=== PATIENT | female | born 1995 | race Caucasian/White ===

== ENCOUNTER 2022-04-29 07:23 | Inpatient (IN) | payer OTHER ==
[2022-04-29 07:47] VITALS: BMI 31.6
[2022-04-29 08:57] LABS: Fetal Membranes Rupture No Membranes Rupture (No Rupture)
[2022-04-29] MEDS ORDERED: Carboprost 250 MCG/ML AMP IM PRN (10:18)
[2022-04-29] MEDS ORDERED: Diphenoxylate HCl/Atropine Tablet PO PRN (10:18)
[2022-04-29] MEDS ORDERED: Methylergonovine 0.2 MG/ML VIAL IM PRN (10:18)
[2022-04-29] MEDS ORDERED: Misoprostol 200 MCG TAB PR PRN (10:18)
[2022-04-29] MEDS ORDERED: Ondansetron PF 4 MG/2 ML Vial IVP PRN ×2 (10:18→14:51)
[2022-04-29] MEDS ORDERED: Butorphanol Tartrate 1 MG/ML VIAL SLOW IVP PRN (10:18)
[2022-04-29] MEDS ORDERED: Lidocaine 1% (PF) 30 ML VIAL SC PRN (10:18)
[2022-04-29] MEDS ORDERED: Acetaminophen 500 MG TAB PO PRN (10:18)
[2022-04-29] MEDS ORDERED: hydrALAZINE 20 MG/ML VIAL SLOW IVP PRN (10:18)
[2022-04-29] MEDS ORDERED: Promethazine HCl 25 MG/ML VIAL IM PRN ×2 (10:18→14:51)
[2022-04-29] MEDS ORDERED: NS w/ Oxytocin 30 units 500 ML IV SCH ×2 (10:30)
[2022-04-29] MEDS ORDERED: Lactated Ringer's 1,000 ML IV SCH (10:30)
[2022-04-29 11:33] LABS: Hemoglobin 10.4 g/dL (12.0-15.5); Mean Corpuscular HGB CONC 32.4 g/dL (32.0-36.0); Mean Corpuscular Hemoglobin 23.6 pg (27.0-33.0); Mean Corpuscular Volume 72.8 fl (81.6-98.3); Mean Platelet Volume 9.6 fl (7.4-10.4); Platelet Count 288 10x3/uL (150-450); Red Blood Cell (RBC) Count 4.41 10x6/uL (3.90-5.03); White Blood Cell (WBC) Count 11.1 10x3/uL (3.5-10.5)
[2022-04-29 12:05] LABS: Syphilis Antibody Nonreactive (Nonreactive); Syphilis Antibody Index 0.07 S/CO (<1.00 Non-Reactive)
[2022-04-29 12:07] LABS: HBSAg Index 0.13 S/CO (0-0.99); Hep B Surf Ag Non-Reactive S/CO (NonReactive)
[2022-04-29 12:30] LABS: SARS-CoV-2 NAA Rapid Test Not Detected (NotDetected)
[2022-04-29] MEDS ORDERED: Fentanyl 2 mcg/Bup 0.1% Cadd 100 ML ONE (14:05)
[2022-04-29] MEDS ORDERED: Naloxone HCl 0.4 mg/ml Vial IVP PRN ×2 (14:51)
[2022-04-29] MEDS ORDERED: ePHEDrine Sulfate 50 MG/10 ML VIAL SLOW IVP PRN (14:51)
[2022-04-29] MEDS ORDERED: Moisturizing Cream (Eucerin) 113 GM JAR TOP PRN (14:51)
[2022-04-29] MEDS ORDERED: Acetaminophen 325 MG TAB PO PRN (14:51)
[2022-04-29] MEDS ORDERED: diphenhydrAMINE 50 MG/ML VIAL IVP PRN (14:51)
[2022-04-29] MEDS ORDERED: Fentanyl 2 mcg/Bupivacaine 0.1% Cassette 100 ML EPIDURAL SCH (15:00)
[2022-04-29] MEDS ORDERED: Communication Order-Pharmacy FS SCH (15:00)
[2022-04-29] MEDS ORDERED: Lactated Ringer's 500 ML IV PRN (15:21)
[2022-04-30] MEDS ORDERED: Boostrix 0.5 ML (Tdap) VIAL (>/=7 yrs of age) IM ONE (02:09)
[2022-04-30] MEDS ORDERED: Bisacodyl 10 MG SUPP PR PRN (02:09)
[2022-04-30] MEDS ORDERED: Ondansetron PF 4 MG/2 ML Vial IVP PRN (02:09)
[2022-04-30] MEDS ORDERED: diphenhydrAMINE 25 MG CAP PO PRN (02:09)
[2022-04-30] MEDS ORDERED: Lanolin Ointment 7 GM TUBE TOP PRN (02:09)
[2022-04-30] MEDS ORDERED: Preparation H Ointment 28 GM TUBE PR PRN (02:09)
[2022-04-30] MEDS ORDERED: Benzocaine-Menthol 82.5 ML CAN TOP PRN (02:09)
[2022-04-30] MEDS ORDERED: HYDROcodone/Acetaminophen 5/325 mg Tablet PO PRN ×2 (02:09)
[2022-04-30] MEDS ORDERED: hydrALAZINE 20 MG/ML VIAL SLOW IVP PRN (02:09)
[2022-04-30] MEDS ORDERED: NS w/ Oxytocin 30 units 500 ML IV SCH (02:09)
[2022-04-30] MEDS ORDERED: Milk Of Magnesia 30 ML UDCUP PO PRN (02:09)
[2022-04-30] MEDS: Ibuprofen 800 MG TAB PO SCH ×3 (05:19→22:37)
[2022-04-30] MEDS: Ferrous Sulfate 325 MG TAB PO SCH ×2 (07:28→16:15)
[2022-04-30] MEDS: Prenatal Vitamin 1 TAB PO SCH (09:07)
[2022-04-30] MEDS: Docusate 100 MG CAP PO SCH ×2 (09:07→22:00)
[2022-05-01] MEDS: Ibuprofen 800 MG TAB PO SCH ×2 (05:25→13:59)
[2022-05-01] MEDS: Ferrous Sulfate 325 MG TAB PO SCH ×2 (07:29→16:08)
[2022-05-01 07:39] VITALS: BP 108/69; TEMP 97.8
[2022-05-01] MEDS: Docusate 100 MG CAP PO SCH (08:22)
[2022-05-01] MEDS: Prenatal Vitamin 1 TAB PO SCH (08:22)
== END 2022-05-01 18:20 | disposition home or self-care (01) | DRG 806 ==
LOC: CSHLD/OP 07:23 → CSHLD 11:16 → CSHPP 04-30 01:39
PROVIDERS: ADMIT Obstetrics & Gynecology; ATTEND Obstetrics & Gynecology
PROC: 10E0XZZ Delivery of Products of Conception, External Approach (ICD-10-PCS; principal; 2022-04-29)
PROC: 0KQM0ZZ Repair Perineum Muscle, Open Approach (ICD-10-PCS; 2022-04-29)
PROC: 3E0334Z Introduction of Serum, Toxoid and Vaccine into Peripheral Vein, Percutaneous Approach (ICD-10-PCS; 2022-04-29)
DX: O42.02 Full-term premature rupture of membranes, onset of labor within 24 hours of rupture (principal); O98.32 Other infections with a predominantly sexual mode of transmission complicating childbirth; Z37.0 Single live birth; O26.893 Other specified pregnancy related conditions, third trimester; Z67.41 Type O blood, Rh negative; Z20.822 Contact with and (suspected) exposure to COVID-19; Z88.0 Allergy status to penicillin; Z3A.40 40 weeks gestation of pregnancy; A60.00 Herpesviral infection of urogenital system, unspecified; F32.A Depression, unspecified; F17.210 Nicotine dependence, cigarettes, uncomplicated; O99.344 Other mental disorders complicating childbirth; O99.334 Smoking (tobacco) complicating childbirth; O70.1 Second degree perineal laceration during delivery; O77.0 Labor and delivery complicated by meconium in amniotic fluid
CPT/HCPCS: 36415; 51702; 84112; 85027; 85461; 86780; 86850; 86870; 86900; 86901; 87340; 90384; 96372; 99285; U0002

== ENCOUNTER 2023-04-20 10:47 | Emergency (ER) | payer SELFPAY ==
[2023-04-20 11:38] LABS: #Eosinphils 0.1 10x3/uL (0.0-0.5); #Monocytes 0.4 10x3/uL (0.0-1.1); #Neutrophils 2.3 10x3/uL (1.5-8.4); %Basophils 0.6 % (0.0-2.0); %Lymphocytes 41.1 % (18.0-47.0); %Monocytes 8.4 % (0.0-10.0); %Neutrophils 47.7 % (40.0-75.0); Hematocrit 37.9 % (34.9-44.5); Hemoglobin 12.4 g/dL (12.0-15.5); Mean Corpuscular HGB CONC 32.7 g/dL (32.0-36.0); Mean Corpuscular Hemoglobin 26.4 pg (27.0-33.0); Mean Corpuscular Volume 80.8 fl (81.6-98.3); Mean Platelet Volume 9.8 fl (7.4-10.4); Platelet Count 192 10x3/uL (150-450); RBC Distribution Width 13.3 % (11.5-14.5); Red Blood Cell (RBC) Count 4.69 10x6/uL (3.90-5.03); White Blood Cell (WBC) Count 4.9 10x3/uL (3.5-10.5)
[2023-04-20 12:07] LABS: ALT (SGPT) 31 U/L (8-55); AST (SGOT) 19 U/L (5-34); Albumin 3.7 g/dL (3.5-5.0); Alkaline Phosphatase 49 U/L (40-110); Anion Gap 13 mmol/L (10-20); BUN (Urea Nitrogen) 7 mg/dL (7.0-18.7); Bilirubin, Total 0.4 mg/dL (0.2-1.2); Calc. Creatinine Clearance 0 mL/min (70-130); Calcium 8.8 mg/dL (7.8-10.44); Carbon Dioxide 24 mmol/L (22-29); Chloride 107 mmol/L (98-107); Estimated GFR 127; Globulin 3.3 g/dL (2.4-3.5); Glucose 84 mg/dL (70-105); Potassium 4.5 mmol/L (3.5-5.1); Sodium 139 mmol/L (136-145)
[2023-04-20 13:06] LABS: Bilirubin Neg (Negative); Blood, Urine 25 (Negative); Clarity Slightly Cloudy (Clear); Glucose, Urine (Dipstick) Normal (Negative); Ketone, Urine Negative (Negative); Leukocyte Negative (Negative); Nitrite Negative (Negative); Protein, Urine (Dipstick) 15 mg/dl (Neg-Trace); Specific Gravity, Urine 1.015 (1.005-1.030); Urobilinogen Normal mg/dL (Less than 2)
[2023-04-20 13:30] LABS: CAUTI Indications for Culture Pregnancy; RBC/HPF 0-3 HPF (0-3); Squamous Epithelial 0-3 HPF (0-3); WBC/HPF 0-3 HPF (0-3)
[2023-04-20 13:31] LABS: Bacteria/HPF None Seen HPF (None Seen); Urine Culture Reflex Yes Yes
== END 2023-04-20 14:12 | disposition home or self-care (01) ==
LOC: CSHERS 10:47
DX: O20.8 Other hemorrhage in early pregnancy (principal); Z3A.01 Less than 8 weeks gestation of pregnancy; Z87.891 Personal history of nicotine dependence
CPT/HCPCS: 76856; 80053; 81001; 84702; 85025; 86900; 86901; 87086; 90384; 96372

== ENCOUNTER 2023-12-02 06:00 | Inpatient (IN) | payer BC ==
[2023-12-02] MEDS: Lactated Ringer's 1,000 ML IV SCH (07:25)
[2023-12-02] MEDS ORDERED: Promethazine HCl 25 MG/ML VIAL IM PRN ×2 (07:42→14:17)
[2023-12-02] MEDS ORDERED: HYDROcodone/Acetaminophen 5/325 mg Tablet PO PRN ×3 (07:42→21:11)
[2023-12-02] MEDS ORDERED: Oxytocin 30 units/NS 500 ML 500 ML IV SCH ×2 (07:42)
[2023-12-02] MEDS ORDERED: fentaNYL 50 mcg/mL 1 mL Vial SLOW IVP PRN (07:42)
[2023-12-02] MEDS ORDERED: Lidocaine 1% (PF) 30 ML VIAL SC PRN (07:42)
[2023-12-02] MEDS ORDERED: hydrALAZINE 20 MG/ML VIAL SLOW IVP PRN ×2 (07:42→21:11)
[2023-12-02] MEDS ORDERED: Ondansetron PF 4 MG/2 ML Vial IVP PRN ×3 (07:42→21:11)
[2023-12-02 07:52] LABS: Hematocrit 31.6 % (34.9-44.5); Hemoglobin 10.4 g/dL (12.0-15.5); Mean Corpuscular HGB CONC 32.9 g/dL (32.0-36.0); Mean Corpuscular Hemoglobin 24.2 pg (27.0-33.0); Mean Corpuscular Volume 73.7 fL (81.6-98.3); Mean Platelet Volume 9.8 fL (7.4-10.4); Platelet Count 213 10x3/uL (150-450); RBC Distribution Width 18.2 % (11.5-14.5); Red Blood Cell (RBC) Count 4.29 10x6/uL (3.90-5.03); White Blood Cell (WBC) Count 10.3 10x3/uL (3.5-10.5)
[2023-12-02] MEDS: Misoprostol 100 MCG TAB VAG SCH (08:19)
[2023-12-02 08:22] LABS: HBsAg Index 0.16 S/CO (0-0.99); Hep B Surf Ag - L&D Non-Reactive S/CO (NonReactive)
[2023-12-02 08:23] LABS: Syphilis Antibody Nonreactive (Nonreactive); Syphilis Antibody Index 0.05 S/CO (<1.00 Non-Reactive)
[2023-12-02 08:42] VITALS: BMI 31.6
[2023-12-02] MEDS: Oxytocin 30 units/NS 500 ML 500 ML IV SCH (10:26)
[2023-12-02] MEDS: fentaNYL/Ropivacaine Epidural 100 ML ONE (12:23)
[2023-12-02] MEDS: ePHEDrine Sulfate 50 MG/10 ML VIAL SLOW IVP PRN (12:59)
[2023-12-02] MEDS ORDERED: Naloxone HCl 0.4 mg/ml Vial IVP PRN ×2 (14:17)
[2023-12-02] MEDS ORDERED: diphenhydrAMINE 50 MG/ML VIAL IVP PRN (14:17)
[2023-12-02] MEDS ORDERED: Acetaminophen 325 MG TAB PO PRN (14:17)
[2023-12-02] MEDS ORDERED: Lactated Ringer's 500 ML IV PRN (14:17)
[2023-12-02] MEDS ORDERED: Moisturizing Cream (Eucerin) 113 GM JAR TOP PRN (14:17)
[2023-12-02] MEDS ORDERED: Communication Order-Pharmacy FS SCH (14:30)
[2023-12-02] MEDS ORDERED: fentaNYL 2 mcg/Ropivacaine 0.2% Epidural 100 ML CADD EPIDURAL SCH (14:30)
[2023-12-02] MEDS: Ibuprofen 800 MG TAB PO PRN (19:33)
[2023-12-02] MEDS ORDERED: Milk Of Magnesia 30 ML UDCUP PO PRN (21:11)
[2023-12-02] MEDS ORDERED: diphenhydrAMINE 25 MG CAP PO PRN (21:11)
[2023-12-02] MEDS ORDERED: Lanolin Ointment 7 GM TUBE TOP PRN (21:11)
[2023-12-02] MEDS ORDERED: Bisacodyl 10 MG SUPP PR PRN (21:11)
[2023-12-02] MEDS: Oxytocin 30 units/NS 500 ML 500 ML ONE (21:31)
[2023-12-02] MEDS: Terbutaline Sulfate 1 MG/ML VIAL ONE (21:31)
[2023-12-02] MEDS: Misoprostol 100 MCG TAB ONE (21:31)
[2023-12-02] MEDS: Boostrix 0.5 ML (Tdap) VIAL (>/=7 yrs of age) IM ONE (23:10)
[2023-12-02] MEDS: Docusate 100 MG CAP PO SCH (23:10)
[2023-12-03] MEDS: Ibuprofen 800 MG TAB PO SCH (02:36)
[2023-12-03] MEDS: Benzocaine-Menthol 82.5 ML CAN TOP PRN (06:05)
[2023-12-03] MEDS: Ferrous Sulfate 325 MG TAB PO SCH (07:17)
[2023-12-03] MEDS: Docusate 100 MG CAP PO SCH (08:40)
[2023-12-03] MEDS: Prenatal Vitamin 1 TAB PO SCH (08:40)
[2023-12-03] MEDS: HYDROcodone/Acetaminophen 5/325 mg Tablet PO PRN (09:50)
[2023-12-03] MEDS ORDERED: ePHEDrine Sulfate 50 MG/10 ML VIAL ONE (14:00)
[2023-12-03] MEDS ORDERED: Bupivacaine 0.25% HCL 30 ML VIAL ONE (14:00)
[2023-12-03 19:51] VITALS: BP 115/68; TEMP 98.5
== END 2023-12-03 21:35 | disposition home or self-care (01) | DRG 807 ==
LOC: CSHLD 06:19 → CSHPP 21:05
PROVIDERS: ADMIT Obstetrics & Gynecology; ATTEND Obstetrics & Gynecology
PROC: 10E0XZZ Delivery of Products of Conception, External Approach (ICD-10-PCS; principal; 2023-12-02)
PROC: 0KQM0ZZ Repair Perineum Muscle, Open Approach (ICD-10-PCS; 2023-12-02)
PROC: 3E0234Z Introduction of Serum, Toxoid and Vaccine into Muscle, Percutaneous Approach (ICD-10-PCS; 2023-12-03)
DX: O26.893 Other specified pregnancy related conditions, third trimester (principal); Z37.0 Single live birth; Z3A.39 39 weeks gestation of pregnancy; Z88.0 Allergy status to penicillin; Z88.1 Allergy status to other antibiotic agents; Z67.41 Type O blood, Rh negative
CPT/HCPCS: 36415; 51702; 85027; 85461; 86780; 86850; 86900; 86901; 87340; 90384; 96372; J0665; J2590; J7120